=== PATIENT | female | born 1970 | race Caucasian/White ===

== ENCOUNTER → 2020-05-19 | Outpatient (CLI) | payer MEDICARE, MEDICAID ==
[~2020-05-19] MED LIST: ASPI-1497 PO; ATOR20TA65 PO; CLOP75TA33 PO; INSLIS SUBCUT; INSU100I28 SQ; MIDO10TA PO; PANT40TA51 PO; SEVE0.8P3 PO
== END | disposition home or self-care (01) ==
LOC: LAB 10:20
PROVIDERS: ATTEND Podiatrist Foot & Ankle Surgery
DX: Z20.822 Contact with and (suspected) exposure to COVID-19 (principal)
CPT/HCPCS: 87426

== ENCOUNTER 2020-05-20 06:40 | Day surgery (SDC) | payer MEDICARE, MEDICAID ==
[~2020-05-20] VITALS: Ht 167.6 cm; Wt 94.8 kg
[~2020-05-20 06:40] MED LIST changes: -MIDO10TA PO
[2020-05-20] MEDS ORDERED: SODIUM CHLORIDE 0.9% 500 ML IV SCH (07:00)
[2020-05-20] MEDS ORDERED: SODIUM CHLORIDE 0.9% 1,000 ML IV SCH (07:00)
[2020-05-20] MEDS ORDERED: LIDOCAINE HCL 1% 20ML VIAL (Pyxis) INJ ONE (07:19)
[2020-05-20] MEDS ORDERED: BUPIVACAINE HCL 0.5% (5MG/ML) 50ML ONE (07:19)
[2020-05-20] MEDS ORDERED: BETAMETHASONE ACET/BETAMET 30 MG/5 ML VIAL IM ONE (07:20)
[2020-05-20] MEDS ORDERED: VANCOMYCIN HCL 1 GM/VIAL ONE ×2 (07:23→08:47)
[2020-05-20] MEDS ORDERED: BACITRACIN 50,000 UNITS/VIAL ONE (07:24)
[2020-05-20 07:47] LABS: EOSINOPHILS % 1.5 % (0.0-5.0); HEMATOCRIT. 36.3 % (36.0-48.0); HEMOGLOBIN. 12.1 g/dL (12.0-16.0); LYMPHOCYTES % 26.9 % (20.0-50.0); MEAN CORPUSCULAR HEMOGLOBIN 30.7 pg (28.0-32.0); MEAN PLATELET VOLUME 8.4 fl (7.4-10.4); NEUTROPHILS % 61.6 % (40.0-76.0); PLATELET 296 x1000/uL (130-400); RED BLOOD CELL COUNT 3.94 mill/uL (4.2-5.4); RED CELL DISTRIBUTION WIDTH 14.8 % (11.6-14.6)
[2020-05-20] MEDS ORDERED: PROPOFOL 200MG/20ML VIAL IV ONE ×2 (08:20→08:21)
[2020-05-20] MEDS ORDERED: FENTANYL CITRATE/PF 50MCG/ML 2ML VIAL ONE (08:20)
[2020-05-20] MEDS ORDERED: MIDO10TA PO (08:27)
[2020-05-20 08:34] LABS: HCG SCREEN NEGATIVE
[2020-05-20] MEDS ORDERED: ONDANSETRON HCL 4MG/2ML INJ IV PRN (09:30)
[2020-05-20] MEDS ORDERED: HYDROMORPHONE HCL/PF 2MG/ML CPJ IV PRN (09:30)
[2020-05-20 11:08] VITALS: BP 127/62
== END 2020-05-20 11:30 | disposition home or self-care (01) ==
LOC: OR 06:40
PROVIDERS: ATTEND Podiatrist Foot & Ankle Surgery
DX: S91.104A Unspecified open wound of right lesser toe(s) without damage to nail, initial encounter (principal); M86.8X7 Other osteomyelitis, ankle and foot; I12.0 Hypertensive chronic kidney disease with stage 5 chronic kidney disease or end stage renal disease; N18.6 End stage renal disease; E11.22 Type 2 diabetes mellitus with diabetic chronic kidney disease; E78.00 Pure hypercholesterolemia, unspecified; Z79.82 Long term (current) use of aspirin; Z79.84 Long term (current) use of oral hypoglycemic drugs; Z79.899 Other long term (current) drug therapy; Z98.890 Other specified postprocedural states; X58.XXXA Exposure to other specified factors, initial encounter; Y93.89 Activity, other specified; Y92.89 Other specified places as the place of occurrence of the external cause; Y99.8 Other external cause status
CPT/HCPCS: 11044; 36415; 80048; 82962; 84703; 85025; 87070; 87075; 87077; 87186; 87205; 88304; 88311; 93005; J1170; J2704; J3010; J3370; J3490; J7040; J0702